=== PATIENT | female | born 1995 | race American Indian/Alaskan Native ===

== ENCOUNTER 2020-10-25 14:33 | Outpatient (CLI) | payer MEDICAID ==
[2020-10-25 14:57] VITALS: BP 102/64
[2020-10-25] MEDS ORDERED: BETAMET ACET/BETAMET NA PH 6 MG/ML INJ 5 ML MDV IM ONE (17:00)
--- NOTE | 2020-10-25 19:32 | Ultrasound Report ---
ULTRASOUND OBSTETRIC Indication: EFW AND CERVICAL LENGTH Findings: There is a single intrauterine . BPD = 7.8 cm = 31 weeks, 3 day(s). Head circumference = 29.3 cm = 32 weeks, 2 day(s). Abdominal circumference = 26.1 cm = 30 weeks, 2 day(s). Femur length = 5.8 cm = 30 weeks, 3 day(s). Overall estimated sonographic age = 31 weeks, 1 day(s). heart rate is 1:30 beats per minute. Estimated weight is 1601 grams position is breech. Cervix appears closed.. The cervical length is 3.6 cm movement is present. Maternal adnexa appear normal. EVITA measures 12.5 The cephalic index is 77.5 Impression: 1. Single living intrauterine with estimated sonographic age of 31 weeks, 1 day(s). 2. Cervical length of 3.6 cm Signer Name: Royce Bragg MD Signed: 10/25/2020 7:28 PM Workstation Name: [id number]
== END 2020-10-25 18:33 | disposition home or self-care (01) ==
LOC: TRG 14:33 → APU 14:34 → TRG 18:33
DX: O47.03 False labor before 37 completed weeks of gestation, third trimester (principal); Z3A.31 31 weeks gestation of pregnancy
CPT/HCPCS: 59020; 76816; 96372; J0702

== ENCOUNTER 2020-10-26 14:37 | Outpatient (CLI) | payer MEDICAID ==
[2020-10-26] MEDS ORDERED: LACTATED RINGERS 1,000 ML IV SCH (15:00)
[2020-10-26] MEDS ORDERED: BETAMET ACET/BETAMET NA PH 6 MG/ML INJ 5 ML MDV IM ONE (16:00)
[2020-10-26 18:23] VITALS: BP 102/59
== END 2020-10-26 15:23 | disposition home or self-care (01) ==
LOC: TRG 14:37 → APU 14:39 → TRG 15:23
PROVIDERS: ATTEND Obstetrics & Gynecology
DX: O47.03 False labor before 37 completed weeks of gestation, third trimester (principal); Z3A.31 31 weeks gestation of pregnancy
CPT/HCPCS: 96372; J0702

== ENCOUNTER 2020-11-14 15:39 | Outpatient (CLI) | payer MEDICAID ==
[2020-11-14] MEDS ORDERED: LACTATED RINGERS 1,000 ML IV SCH (16:15)
[2020-11-14 16:22] VITALS: BP 118/61
[2020-11-14 16:33] LABS: Bilirubin,Urine NEG (Negative); Blood,Urine NEG (Negative); Color,Urine Yellow (Yellow); Protein,Urine <15 mg/dL mg/dL (Negative); Urobilinogen,Urine < 2.0 mg/dL (<2.0)
== END 2020-11-14 17:25 | disposition home or self-care (01) ==
LOC: TRG 15:39 → APU 15:43 → TRG 17:25
PROVIDERS: ATTEND Obstetrics & Gynecology
DX: Z34.93 Encounter for supervision of normal pregnancy, unspecified, third trimester (principal); Z3A.34 34 weeks gestation of pregnancy
CPT/HCPCS: 59025; 81001

== ENCOUNTER 2020-12-20 11:44 | Inpatient (IN) | payer MEDICAID ==
[2020-12-20] MEDS ORDERED: ePHEDrine SULFATE 50 MG/1 ML INJ IV PRN ×2 (12:58→20:48)
[2020-12-20] MEDS ORDERED: TERBUTALINE 1 MG/1 ML INJ SUB-Q PRN (12:58)
[2020-12-20] MEDS ORDERED: MINERAL OIL 30 ML ORAL LIQD PO PRN (12:58)
[2020-12-20] MEDS ORDERED: LIDOCAINE (2%) 20 MG/1 ML VIAL 20 ML MDV INFILTRATI ONE ×2 (12:58→22:26)
[2020-12-20] MEDS ORDERED: OXYTOCIN DRIP 30 UNITS/500 ML BAG IV SCH ×2 (13:00)
[2020-12-20 13:30] LABS: Hematocrit 35.5 % (30.3-42.9); Hemoglobin 11.9 gm/dl (10.1-14.3); Mean Corpuscular HGB Conc 34 % (30-34); Mean Corpuscular Volume 89 fl (79-97); Platelet Count 256 K/mm3 (140-440); Red Blood Count 3.98 M/mm3 (3.65-5.03); Red Cell Distribution Width 13.9 % (13.2-15.2)
--- NOTE | 2020-12-20 15:45 | History and Physical Report ---
History of Present Illness Date of examination: 12/20/20 Date of admission: 12/20/2020 Chief complaint: C/o uc times several hours History of present illness: 25 y/o presented to [facility] @ 39.1 wks with c/o uc times several hours. Pt denies LOF or VB and admits to active FM. Pt initiated her pnc @ [facility] location @ 7 2/7 wks. Pt is a silent carrier for Alpha Thalassemia and is varicella NI otherwise her preg has been uneventful. She has a hx of a c/s r/t failure to progress and she desires a TOLAC. Her GBS is neg. Past History Past Medical History: no pertinent history, other ( Varicella NI, Alpha Thalassemia carrier) Past Surgical History: section Family/Genetic History: cancer, other (down syndrome) Social history: single, full code - Obstetrical History Expected Date of Delivery: 12/26/20 Actual Gestation: 39 Week(s) 1 Day(s) : 4 Para: 1 Induced : 2 Number of Living Children: 1 Medications and Allergies Allergies Allergy/AdvReac Type Severity Reaction Status Date / Time No Known Allergies Allergy Verified 10/26/20 14:52 Active Meds: Active Medications Ephedrine Sulfate (Ephedrine Sulfate 50 Mg/1 Ml Inj) 10 mg IV Q2M PRN PRN Reason: Hypotension Oxytocin/Sodium Chloride (Pitocin/Ns 30 Unit/500ml) 30 units in 500 mls @ 2 mls/hr IV TITR [facility]; Protocol Lactated Ringer's (Lactated Ringers) 1,000 mls @ 125 mls/hr IV DIRECT [facility] Oxytocin/Sodium Chloride (Pitocin/Ns 30 Unit/500ml) 30 units in 500 mls @ 40 mls/hr IV TITR [facility]; Protocol Ampicillin Sodium (Ampicillin/Ns 1 Gm/50 Ml) 1 gm in 50 mls @ 100 mls/hr IV Q4H [facility]; Protocol Mineral Oil (Mineral Oil 30 Ml Oral Liqd) 30 ml PO QHS PRN PRN Reason: Constipation Terbutaline Sulfate (Terbutaline 1 Mg/1 Ml Inj) 0.25 mg SUB-Q ONCE PRN PRN Reason: Hyperstimulation/Hypertonicity Review of Systems All systems: negative Eyes: deferred Ears, nose, mouth and throat: deferred Breasts: normal Genitourinary: normal appearance Rectal Exam: deferred - Vital Signs Vital signs: Vital Signs Pulse Pulse Ox 77 100 12/20/20 11:51 12/20/20 11:51 Temp Pulse Resp BP Pulse Ox 98.3 F 85 16 100 12/20/20 12:01 12/20/20 14:01 12/20/20 12:01 12/20/20 14:01 - Physical Exam Breasts: Positive: normal Abdomen: Positive: normal appearance, soft, normal bowel sounds, other (gravid) Genitourinary (Female): Positive: normal external genitalia, normal perenium Vulva: both: normal Vagina: Positive: normal moisture Uterus: Positive: enlarged, normal contour, other (gravid) Anus/Rectum: Positive: normal perianal skin Extremities: Positive: normal - Obstetrical FHR: auscultation normal, category 1 Uterine Contraction Monitor Mode: External Cervical Dilatation: 3 Cervical Effacement Percentage: 80 station: -2 Uterine Contraction Pattern: Irregular Uterine Tone Measurement Phase: Resting Uterine Contraction Intensity: Mild Results Result Diagrams: 12/20/20 Unknown Abnormal lab results 12/20/20 Range/Units Unknown WBC 13.6 H (4.5-11.0) K/mm3 All other labs normal. Assessment and Plan A: IUP@ 39.1 wks Hx of previous c/s r/t failure to progress Varicella NI Alpha Thalassemia carrier GBS neg P: Admit to L&D Continuous monitoring Pain med/Epidural prn Offer Varicella vaccine pp Start low dose Pitocin Anticipate Dr Wilhelm consulted
[2020-12-20] MEDS ORDERED: AMPICILLIN/NS 1 GM/50 ML 1 GM/50 ML BAG IV SCH (17:00)
[2020-12-20] MEDS: LACTATED RINGERS 1,000 ML IV SCH (17:47)
[2020-12-20] MEDS ORDERED: fentaNYL 100 MCG/2 ML INJ IV PRN (18:46)
[2020-12-20] MEDS ORDERED: BUTORPHANOL 2 MG/1 ML INJ IV PRN ×2 (18:46)
[2020-12-20] MEDS ORDERED: NALOXONE 2 MG/2 ML INJ IV PRN (20:48)
--- NOTE | 2020-12-20 20:48 | Anesthesia Consultation ---
Anesthesia Consult and Med Hx Date of service: 12/20/20 - Airway Anesthetic Teeth Evaluation: Good ROM Head & Neck: Adequate Mental/Hyoid Distance: Adequate Mallampati Class: Class II Intubation Access Assessment: Probably Good - Pulmonary Exam CTA: Yes - Cardiac Exam Cardiac Exam: RRR - Pre-Operative Health Status ASA Pre-Surgery Classification: ASA2 Proposed Anesthetic Plan: Epidural - Pulmonary Hx Asthma: No COPD: No Hx Pneumonia: No - Cardiovascular System Hx Hypertension: No - Central Nervous System Hx Seizures: No Hx Psychiatric Problems: No - Endocrine Hx Renal Disease: No Hx End Stage Renal Disease: No Hx Hypothyroidism: No Hx Hyperthyroidism: No - Hematic Hx Anemia: Yes Hx Sickle Cell Disease: No - Other Systems Hx Alcohol Use: No
[2020-12-20] MEDS ORDERED: fentaNYL-BUPIV 2 MCG/ML-0.125% 200 MCG/100 ML BAG EPIDURAL SCH (21:00)
--- NOTE | 2020-12-20 21:09 | Progress Note ---
Labor Epidural - Labor Epidural Start Time: 20:57 Stop Time: 21:00 Performed by:: KATTY WOODARD Procedure: Patient is requesting epidural for labor pain. H&P, and labs reviewed. Procedure explained, questions answered, consent obtained. Patient in sitting position with blood pressure cuff and pulse ox on and working. Timeout performed immediately before start of procedure. Sterile chlorahexadine 0.5% prep/drape. 3 mL 1% lidocaine skin wheal at L[3]-L[4]. 18-gauge BookNowtead epidural needle advanced to zvxx-je-mzjjmpfcll with saline at [7] cm. 27-gauge spinal needle advanced until clear, free-flowing CSF. Intrathecal dexmedetomidine [5] mcg administered and needle removed. Epidural catheter advanced to [12] cm, negative aspiration for blood and csf, negative test dose 3 ml 1.5% lidocaine with epinephrine. Sterile steri-strips and tegaderm applied, followed by tape reinforcement. Patient tolerated procedure well.
[2020-12-20] MEDS ORDERED: miSOPROStol 200 MCG TAB ONE ×2 (22:53→22:55)
[2020-12-20] MEDS ORDERED: CARBOPROST TROMETHAMINE 250 MCG/1 ML INJ IM ONE (22:54)
[2020-12-20] MEDS ORDERED: METHYLERGONOVINE MALEATE 0.2 MG/ML VIAL IM ONE (22:54)
--- NOTE | 2020-12-20 23:06 | Procedure Note ---
OB Delivery Note - Delivery Date of Delivery: 12/20/20 Surgeon: ANIYAH FLORES Estimated blood loss: 200cc - Vaginal Delivery presentation: vertex Delivery position: OA Intrapartum events: meconium Delivery induction: none Delivery augmentation: pitocin Delivery monitor: external FHT, external uterine, internal uterine Route of delivery: Delivery placenta: spontaneous Episiotomy: none Delivery laceration: 1st degree (left labia) Delivery repair: chromic Anesthesia: local (2% lidocaine) Delivery comments: Nurse called me to state patient was complete. Pt evaluated and noted to have meconium stained fluid. Pt wanted to wait on FOB to deliver, however when I educated her of meconium stained fluid she agreed to push. Successful vaginal after section of viable male uncomplicated. Complete Placenta delivery with 3 vessel cord occurred and same was heart shaped and sent to pathology. pt sustained 1st degree laceration to left labia and same repaired with 2-0 chromic running locked suture. Cervix evaluated and no lacerations seen. Cytotec 800mcg given per rectum as prophylaxis with delayed delivery of placenta. Mom and baby stable. - Infant A at 1 minute: 8 at 5 minutes: 9 Infant Gender: Male (2932g)
[2020-12-20] MEDS ORDERED: AMPICILLIN 1,000 MG in SODIUM CHLORIDE 0.9% 50 ML IV ONE (23:57)
[2020-12-21] MEDS ORDERED: GENTAMICIN/NS 80 MG/100 ML 100 ML IV SCH
[2020-12-21] MEDS ORDERED: diphenhydrAMINE 25 MG CAP PO PRN (00:55)
[2020-12-21] MEDS ORDERED: oxyCODONE /ACETAMINOPHEN 5-325MG TAB PO PRN (00:55)
[2020-12-21] MEDS ORDERED: ONDANSETRON 4 MG/2 ML INJ IV PRN (00:55)
[2020-12-21] MEDS ORDERED: WITCH HAZEL/ GLYCERIN PAD TP PRN (00:55)
[2020-12-21] MEDS ORDERED: LANOLIN/ZINC/DIMETHICONE (LANSINOH) 7 GM TP PRN (00:55)
[2020-12-21] MEDS ORDERED: PROMETHAZINE 25 MG TAB PO PRN (00:55)
[2020-12-21] MEDS ORDERED: MAGNESIUM HYDROXIDE (MOM) ORAL LIQD UDC PO PRN (00:55)
[2020-12-21] MEDS ORDERED: PROMETHAZINE 25 MG RECT SUPP PR PRN (00:55)
--- NOTE | 2020-12-21 01:08 | Event Note ---
Date: 12/21/20 L&D nurse called to report pt temp of 101 F post del. Triple abt was started x 24 hrs post del and Tylenol was prescribed. 500cc IV bolus was ordered and pt was advised to increase her fluids. Will continue monitoring and notify .
[2020-12-21] MEDS ORDERED: ACETAMINOPHEN 325 MG TAB PO ONE (01:55)
[2020-12-21] MEDS: LACTATED RINGERS 1,000 ML IV SCH (02:15)
[2020-12-21] MEDS: AMPICILLIN/NS 1 GM/50 ML 1 GM/50 ML BAG IV SCH ×4 (02:17→22:11)
[2020-12-21] MEDS: IBUPROFEN 600 MG TAB PO SCH ×4 (02:18→23:42)
[2020-12-21] MEDS ORDERED: AMPICILLIN/NS 1 GM/50 ML 1 GM/50 ML BAG IV SCH (06:00)
[2020-12-21 06:28] LABS: Bilirubin,Urine NEG (Negative); Blood,Urine LG (Negative); Color,Urine Yellow (Yellow); Urobilinogen,Urine < 2.0 mg/dL (<2.0)
[2020-12-21] MEDS: PRENATAL VIT27-FE FUMARATE-FOLIC ACID VIT TAB PO SCH (10:00)
[2020-12-21] MEDS ORDERED: PRENATAL ONE DAILY PO SCH (10:00)
--- NOTE | 2020-12-21 12:57 | Progress Note ---
Assessment and Plan A: day 1 S/P . temp. elevation, on antibiotics (temp. normal now). P: Continue antibiotics until afebrile for 24 hours. H/H today. Urine C&S pending. Subjective - Subjective Date of service: 12/21/20 Principal diagnosis: day 1 S/P Patient reports: appetite normal, voiding normally, pain well controlled, flatus, ambulating normally, no dizzy ambulation, no nauseated [place]: doing well Objective - Vital Signs Latest vital signs: Vital Signs Temp Pulse Resp BP BP Pulse Ox 12/21/20 08:26 98.4 F 63 18 113/76 100 12/21/20 08:07 16 12/21/20 04:37 98.0 F 59 L 18 107/64 100 12/21/20 01:59 100.3 F H 66 20 100/61 100 12/21/20 00:23 45 L 98 12/21/20 00:21 61 L 12/21/20 00:17 71 86 12/21/20 00:15 124 H 79 L 12/21/20 00:11 88 100 12/21/20 00:06 79 126/77 100 12/21/20 00:01 76 99 12/20/20 23:56 80 99 12/20/20 23:51 76 124/74 99 12/20/20 23:46 78 99 12/20/20 23:41 77 100 12/20/20 23:36 72 140/71 100 12/20/20 23:31 73 100 12/20/20 23:29 101 F H 12/20/20 23:26 77 100 12/20/20 23:25 75 92 12/20/20 23:21 86 133/79 100 12/20/20 23:16 84 100 12/20/20 23:15 79 90 12/20/20 23:11 88 100 12/20/20 23:07 100 H 94 12/20/20 23:06 87 122/67 99 12/20/20 23:01 78 100 12/20/20 22:56 73 93 12/20/20 22:52 75 91 12/20/20 22:51 77 129/71 99 12/20/20 22:46 91 H 100 12/20/20 22:41 81 100 12/20/20 22:36 79 119/71 100 12/20/20 22:31 83 100 12/20/20 22:26 72 74 L 12/20/20 22:23 84 93 12/20/20 22:20 111 H 100 12/20/20 22:15 99 H 99 12/20/20 22:10 95 H 100 12/20/20 22:05 100 H 100 12/20/20 22:00 90 100 12/20/20 21:55 91 H 100 12/20/20 21:52 83 106/59 12/20/20 21:50 76 100 12/20/20 21:45 84 100 12/20/20 21:40 80 100 12/20/20 21:35 87 99 12/20/20 21:30 97 H 100 12/20/20 21:25 87 99 12/20/20 21:22 81 109/56 12/20/20 21:20 81 104/57 99 12/20/20 21:18 80 109/59 12/20/20 21:16 85 111/60 12/20/20 21:15 87 99 12/20/20 21:14 84 114/57 12/20/20 21:12 88 109/57 12/20/20 21:10 91 H 99 12/20/20 21:08 95 H 122/58 12/20/20 21:06 88 121/58 12/20/20 21:05 89 100 12/20/20 21:04 90 136/63 12/20/20 21:02 99 H 133/62 12/20/20 21:00 85 133/65 100 12/20/20 20:55 90 100 12/20/20 20:50 105 H 100 12/20/20 20:45 77 100 12/20/20 20:40 83 100 12/20/20 20:35 96 H 100 12/20/20 20:30 84 157/83 100 12/20/20 20:25 82 99 12/20/20 20:20 80 100 12/20/20 20:19 80 82 L 12/20/20 20:15 87 100 12/20/20 20:10 72 100 12/20/20 20:05 76 100 12/20/20 20:00 77 100 12/20/20 19:55 104 H 99 12/20/20 19:54 93 H 89 12/20/20 19:50 79 99 12/20/20 19:45 78 98 12/20/20 19:42 98.8 F 17 124/76 12/20/20 19:40 77 98 12/20/20 19:35 80 99 12/20/20 19:30 76 124/76 99 12/20/20 19:25 80 100 12/20/20 19:20 78 99 12/20/20 19:15 80 100 12/20/20 19:10 99.8 F H 86 100 12/20/20 19:05 84 100 12/20/20 19:01 80 119/73 12/20/20 19:00 80 100 12/20/20 18:55 90 100 12/20/20 18:50 89 100 12/20/20 18:45 81 100 12/20/20 18:40 88 99 12/20/20 18:35 74 100 12/20/20 18:30 78 100 12/20/20 18:29 82 114/60 12/20/20 18:25 79 100 12/20/20 18:20 90 100 12/20/20 18:15 83 100 12/20/20 18:14 99.4 F 12/20/20 18:10 82 100 12/20/20 18:05 89 100 12/20/20 18:01 78 117/77 12/20/20 18:00 80 100 12/20/20 17:55 83 100 12/20/20 17:50 82 100 12/20/20 17:45 88 100 12/20/20 17:40 83 100 12/20/20 17:35 87 100 12/20/20 17:30 89 100 12/20/20 17:29 76 118/74 12/20/20 17:11 99.8 F H 18 12/20/20 14:01 85 100 12/20/20 13:56 89 100 12/20/20 13:51 92 H 100 12/20/20 13:46 87 100 12/20/20 13:41 75 100 12/20/20 13:36 78 100 12/20/20 13:31 90 100 12/20/20 13:26 81 100 12/20/20 13:21 77 100 12/20/20 13:16 78 100 12/20/20 13:11 83 100 12/20/20 13:06 81 100 12/20/20 13:01 77 100 12/20/20 12:56 87 99 Intake and Output 12/20/20 12/21/20 12/21/20 23:59 07:59 15:59 Intake Total 1580 120 Output Total 500 700 Balance -500 880 120 Intake: IV 1100 AMPICILLIN/NS 1 GM/50 ML 50 1 gm In 50 ml @ 100 mls/ hr IV Q6H [facility] Rx#: [id number] CLEOCIN 900 MG/50 mL 900 50 mg In 50 ml @ 100 mls/hr IV Q8H [facility] Rx#:[id number] Lactated Ringers 1,000 ml 1000 @ 125 mls/hr IV DIRECT [facility] Rx#:[id number] Oral 480 120 Output: Urine 500 700 Indwelling Catheter 500 Void 700 Other: Total, Intake Amount 240 120 Total, Output Amount 500 700 # Voids Void 1 # Bowel Movements 1 Estimated Blood Loss 200 - Exam Cardiovascular: Present: Regular rate Lungs: Present: Clear to auscultation Abdomen: Present: normal appearance, soft. Absent: distention, tenderness, guar ding, rigidity Uterus: Present: normal, firm, fundal height below umbilicus. Absent: bogginess, tenderness Extremities: Present: normal. Absent: tenderness, edema - Labs Labs: Abnormal lab results 12/20/20 12/21/20 Range/Units Unknown 06:10 WBC 13.6 H (4.5-11.0) K/mm3 Urine pH 8.0 H (5.0-7.0) Urine WBC (Auto) 11.0 H (0.0-6.0) /HPF
[2020-12-21 13:58] LABS: Hematocrit 31.6 % (30.3-42.9); Hemoglobin 10.5 gm/dl (10.1-14.3)
[2020-12-21] MEDS: FERROUS SULFATE 325 MG TAB PO SCH ×2 (16:30→22:11)
[2020-12-22] MEDS: IBUPROFEN 600 MG TAB PO SCH (06:14)
[2020-12-22 09:47] VITALS: BP 112/72
[2020-12-22] MEDS: PRENATAL VIT27-FE FUMARATE-FOLIC ACID VIT TAB PO SCH (12:12)
[2020-12-22] MEDS: FERROUS SULFATE 325 MG TAB PO SCH (12:12)
--- NOTE | 2020-12-22 12:19 | Progress Note ---
Assessment and Plan - Patient Problems (1) (vaginal after ) Current Visit: Yes Status: Acute Plan to address problem: PPD2 s/p successful . Now >24H s/p fever and Abx. Doing well. Meeting goals --Ok to discharge home. Subjective - Subjective Date of service: 12/22/20 Principal diagnosis: day 2 S/P , c/b fever, now afebrile Interval history: Patient doing well s/p successful . Meeting goals. S/p Abx for fever, now resolved >24H. Wants to go home. Breast/bottle feeding. Patient reports: appetite normal, voiding normally, pain well controlled, flatus [place]: doing well Objective - Vital Signs Latest vital signs: Vital Signs Temp Pulse Resp BP Pulse Ox 12/22/20 08:58 99.0 F 71 18 112/72 99 12/22/20 02:04 97.9 F 12/21/20 23:32 98.3 F 76 20 112/76 99 12/21/20 18:18 16 12/21/20 17:39 98.8 F 86 18 105/70 98 12/21/20 12:54 98.3 F 69 18 115/76 100 Intake and Output 12/21/20 12/22/20 12/22/20 23:59 07:59 15:59 Intake Total 1130 240 Balance 1130 240 Intake: IV 50 AMPICILLIN/NS 1 GM/50 ML 50 1 gm In 50 ml @ 100 mls/ hr IV Q6H [facility] Rx#: [id number] Oral 480 240 Intake, Free Water 600 Other: Total, Intake Amount 240 240 # Voids Void 1 1 1 # Bowel Movements 1 - Exam Abdomen: Present: normal appearance, normal bowel sounds Uterus: Present: fundal height below umbilicus Incision: Present: normal, intact
--- NOTE | 2020-12-22 12:20 | Discharge Summary ---
Providers - Providers Date of Admission: 12/20/20 12:58 Date of discharge: 12/22/20 Attending physician: MONI MACIAS MD Primary care physician: MONI MACIAS MD Hospitalization Reason for admission: active labor (hx C/s x 1) Delivery: Procedure details: s/p successful on 12/20/20. 1st degree laceration. Laceration: 1st degree Incision: normal complications: pelvic infection (s/p 24H Abx. Patient afebril >24H prior to discharge home.) Discharge diagnosis: IUP at term delivered, baby: male Pertinent studies: WBC 13.6, s/p Abx. Afebrile > 24H. Condition at discharge: Good Disposition: DC-01 TO HOME OR SELFCARE - Discharge Diagnoses (1) (vaginal after ) Status: Acute Plan - Provider Discharge Summary Activity: routine Diet: routine Instructions: routine Additional instructions: [] Smoking cessation referral if applicable(refer to patient education folder for contact #) [] Refer to [facility] Booklet Call your doctor immediately for: * Fever > 100.5 * Heavy vaginal bleeding ( >1 pad per hour) * Severe persistent headache * Shortness of breath * Reddened, hot, painful area to leg or breast * Drainage or odor from incision. * Keep incision clean and dry at all times and follow doctor's instructions regarding bathing/showering - Follow up plan Follow up: MONI MACIAS MD [Primary Care Provider] - 6 Weeks Forms: [facility] Discharge Summary
== END 2020-12-22 13:44 | disposition home or self-care (01) | DRG 774 ==
LOC: TRG 11:44 → APU 11:46 → LD 12:58 → TRG 12:58 → LD 16:59 → OB 12-21 00:43
PROC: 10E0XZZ Delivery of Products of Conception, External Approach (ICD-10-PCS; principal; 2020-12-20)
PROC: 3E0R3BZ Introduction of Anesthetic Agent into Spinal Canal, Percutaneous Approach (ICD-10-PCS; 2020-12-20)
PROC: 00HU33Z Insertion of Infusion Device into Spinal Canal, Percutaneous Approach (ICD-10-PCS; 2020-12-20)
PROC: 0HQ9XZZ Repair Perineum Skin, External Approach (ICD-10-PCS; 2020-12-20)
DX: O77.0 Labor and delivery complicated by meconium in amniotic fluid (principal); O86.4 Pyrexia of unknown origin following delivery; O99.02 Anemia complicating childbirth; Z37.0 Single live birth; Z20.822 Contact with and (suspected) exposure to COVID-19; D56.3 Thalassemia minor; Z3A.39 39 weeks gestation of pregnancy; O70.0 First degree perineal laceration during delivery; O76 Abnormality in fetal heart rate and rhythm complicating labor and delivery
CPT/HCPCS: 36415; 81001; 85014; 85018; 85027; 86850; 86900; 86901; 87086; 88307; 99211; G0378; G0463; J0290; J0595; J2590; J7120; U0003

== ENCOUNTER 2022-01-12 08:09 | Emergency (ER) | payer MEDICAID ==
[2022-01-12 09:21] LABS: Basophils % (Auto) 0.8 % (0.0-1.8); Eosinophils % (Auto) 0.2 % (0.0-4.3); Hematocrit 37.4 % (30.3-42.9); Hemoglobin 12.3 gm/dl (10.1-14.3); Lymphocytes # (Auto) 0.3 K/mm3 (1.2-5.4); Mean Corpuscular HGB Conc 33 % (30-34); Mean Corpuscular Volume 88 fl (79-97); Monocytes # (Auto) 0.8 K/mm3 (0.0-0.8); Platelet Count 290 K/mm3 (140-440); Red Blood Count 4.26 M/mm3 (3.65-5.03)
[2022-01-12 09:25] LABS: HCG Qualitative,Urine Positive (Negative)
[2022-01-12 09:30] LABS: Alanine Aminotransferase 11 units/L (7-56); Albumin 4.4 g/dL (3.9-5); Blood Urea Nitrogen 6 mg/dL (7-17); Calcium 9.1 mg/dL (8.4-10.2); Hemolysis Index 1
[2022-01-12 09:31] LABS: BUN/Creatinine Ratio 9
[2022-01-12 10:06] LABS: Bilirubin,Urine Negative (Negative); Color,Urine Straw (Yellow)
[2022-01-12 10:07] LABS: Blood,Urine Trace (Negative); Urobilinogen,Urine < 2.0 mg/dL (<2.0)
[2022-01-12] MEDS ORDERED: ACETAMINOPHEN 500 MG TAB PO ONE (10:18)
[2022-01-12] MEDS ORDERED: SODIUM CHLORIDE 0.9% 1000 ML 1,000 ML IV ONE (10:19)
--- NOTE | 2022-01-12 10:43 | Emergency Department Report ---
ED Female HPI - General Chief complaint: Pain General Stated complaint: BODY ACHES/CHILLS/LOWER BACK PAIN Source: patient Mode of arrival: Ambulatory Limitations: No Limitations - History of Present Illness Initial comments: 26-year-old female presents to the ED complaining dysuria fever chills body ache x2 days. Patient states last menstrual cycle was November 29, 2021. Patient is a 4 Para 2 A2. Patient denies any abdominal pain vaginal bleeding at present time. Denies taking any ooki-svq-axgprvy medication. Denies being vaccination to COVID. Patient is alert and oriented x3. No acute distress noted. No ill appearance noted. - Related Data Home Medications Medication Instructions Recorded Confirmed Last Taken One Daily Tablet 1 tab PO DAILY 12/20/20 12/20/20 12/20/20 Previous Rx's Medication Instructions Recorded Last Taken Type cephALEXin [Keflex] 500 mg PO Q12HR 10 Days #20 cap 01/12/22 Unknown Rx Allergies Allergy/AdvReac Type Severity Reaction Status Date / Time No Known Allergies Allergy Verified 10/26/20 14:52 ED Review of Systems ROS: Stated complaint: BODY ACHES/CHILLS/LOWER BACK PAIN Other details as noted in HPI Constitutional: chills, fever Eyes: denies: eye pain, eye discharge, vision change ENT: denies: ear pain, throat pain Respiratory: denies: cough, shortness of breath, wheezing Cardiovascular: denies: chest pain, palpitations Endocrine: no symptoms reported Gastrointestinal: denies: abdominal pain, nausea, diarrhea Genitourinary: dysuria. denies: urgency, discharge Musculoskeletal: denies: back pain, joint swelling, arthralgia Skin: denies: rash, lesions Neurological: denies: headache, weakness, paresthesias Psychiatric: denies: anxiety, depression Hematological/Lymphatic: denies: easy bleeding, easy bruising ED Past Medical Hx - Past Medical History Previous Medical History?: No Hx Hypertension: No Hx Congestive Heart Failure: No Hx Diabetes: No Hx Deep Vein Thrombosis: No Hx Renal Disease: No Hx Sickle Cell Disease: No Hx Seizures: No Hx Asthma: No Hx COPD: No Hx HIV: No Additional medical history: Vaginal delivery x 1 - Surgical History Past Surgical History?: Yes Additional Surgical History: - Social History Smoking Status: Never Smoker - Medications Home Medications: Home Medications Medication Instructions Recorded Confirmed Last Taken Type One Daily Tablet 1 tab PO DAILY 12/20/20 12/20/20 12/20/20 History cephALEXin [Keflex] 500 mg PO Q12HR 10 Days #20 cap 01/12/22 Unknown Rx ED Physical Exam - General Limitations: No Limitations General appearance: alert, in no apparent distress - Head Head exam: Present: atraumatic, normocephalic - Eye Eye exam: Present: normal appearance - ENT ENT exam: Present: mucous membranes moist - Neck Neck exam: Present: normal inspection - Respiratory Respiratory exam: Present: normal lung sounds bilaterally. Absent: respiratory distress - Cardiovascular Cardiovascular Exam: Present: regular rate, normal rhythm. Absent: systolic murmur, diastolic murmur, rubs, gallop - GI/Abdominal GI/Abdominal exam: Present: soft, normal bowel sounds - Extremities Exam Extremities exam: Present: normal inspection - Back Exam Back exam: Present: normal inspection - Neurological Exam Neurological exam: Present: alert, oriented X3 - Psychiatric Psychiatric exam: Present: normal affect, normal mood - Skin Skin exam: Present: warm, dry, intact, normal color. Absent: rash ED Course Vital Signs 01/12/22 01/12/22 08:14 10:40 Temperature 100.3 F H Pulse Rate 116 H Respiratory 20 Rate Blood Pressure 110/70 [Right] O2 Sat by Pulse 96 98 Oximetry ED Medical Decision Making - Lab Data Result diagrams: 01/12/22 08:33 01/12/22 08:33 - Medical Decision Making 26-year-old female presents to the ED complaining dysuria fever chills body ache x2 days. Patient states last menstrual cycle was November 29, 2021. Patient is a 4 Para 2 A2. Patient denies any abdominal pain vaginal bleeding at present time. Denies taking any suaj-mkn-bkjlzjb medication. Denies being vaccination to COVID. Patient is alert and oriented x3. No acute distress noted. No ill appearance noted. Physical examination is unremarkable. Patient urine test is positive. Patient given Tylenol 1 g for fever. Normal saline IV given UA is for UTI Rechecked the patient is resting quietly and comfortable and feeling better. I discussed the results of diagnostic study, my clinical impression and the plan for further treatment with the patient. Patient agrees with plan and discharge at this present time. All question addressed. I have given the patient instruction regarding a diagnosis ,expectation ,follow- up and return precaution. I explained to the patient that emergent condition may arise and to return to the ED for new worsen and any new persisting condition. I have explained the importance of following up with the primary care physician or referral physician listed below has instructed. The patient verbalized understanding of discharge instruction. Abnormal Lab Results 01/12/22 01/12/22 01/12/22 08:33 08:33 Unknown WBC 4.9 RBC 4.26 Hgb 12.3 Hct 37.4 MCV 88 MCH 29 MCHC 33 RDW 14.0 Plt Count 290 Lymph % (Auto) 6.0 L [place] % (Auto) 16.0 H Eos % (Auto) 0.2 Baso % (Auto) 0.8 Lymph # (Auto) 0.3 L [place] # (Auto) 0.8 Eos # (Auto) 0.0 Baso # (Auto) 0.0 Seg Neutrophils % 77.0 H Seg Neutrophils # 3.8 Sodium 134 L Potassium 3.8 Chloride 101.9 Carbon Dioxide 19 L Anion Gap 17 BUN 6 L Creatinine 0.7 Estimated GFR > 60 BUN/Creatinine Ratio 9 Glucose 99 Calcium 9.1 Total Bilirubin 0.20 AST 13 ALT 11 Alkaline Phosphatase 101 Total Protein 7.1 Albumin 4.4 Albumin/Globulin Ratio 1.6 Urine Color Straw Urine Turbidity Slightly cloudy Urine pH 5.0 Ur Specific [place] 1.015 Urine Protein 30 mg/dl Urine Glucose (UA) Negative Urine Ketones 80 Urine Blood Trace Urine Nitrite Negative Ur Reducing Substances Not Reportable Urine Bilirubin Negative Urine Ictotest Not Reportable Urine Urobilinogen < 2.0 Ur Leukocyte Esterase Moderate Urine WBC (Auto) 91.0 H Urine RBC (Auto) 7.0 U Epithel Cells (Auto) 25.0 H Urine HCG, Qual Positive A Critical care attestation.: If time is entered above; I have spent that time in minutes in the direct care of this critically ill patient, excluding procedure time. ED Disposition Clinical Impression: Acute urinary tract infection, Disposition: 01 HOME / SELF CARE / HOMELESS Is pt being admited?: No Does the pt Need Aspirin: No Condition: Stable Instructions: Antibiotic Medicine, Adult, Diqt-av-Kfam, and Urinary Tract Infection Additional Instructions: Take medication as prescribed Return to ED for any worsening symptom Take mydp-ohd-uaflkrn vitamin Prescriptions: cephALEXin [Keflex] 500 mg PO Q12HR 10 Days #20 cap Referrals: [facility] [Provider Group] - 3-5 Days Forms: Work/School Release Form(ED) Time of Disposition: 10:58
[2022-01-12 11:32] VITALS: BP 110/56
== END 2022-01-12 11:51 | disposition home or self-care (01) ==
LOC: ED 08:09
DX: O23.40 Unspecified infection of urinary tract in pregnancy, unspecified trimester (principal); Z3A.00 Weeks of gestation of pregnancy not specified
CPT/HCPCS: 36415; 80053; 81001; 81025; 85025; 87086; 96360; 99283; J7030